=== PATIENT | male | born 1995 | race Caucasian/White ===

== ENCOUNTER 2017-07-11 09:42 | Emergency (ER) | payer OTHER ==
[~2017-07-11] VITALS: Ht 162.6 cm; Wt 70.8 kg
[~2017-07-11 09:42] MED LIST: AMOX500 PO; Bactrim Ds Tab1 EACH PO; CODACE30 PO; HYDACE5 PO; IBUP400 PO; Mupirocin22 GM TOP; RXAMOX500 PO; RXCODACET PO
[2017-07-11] MEDS ORDERED: IBUP600 PO (10:56)
== END 2017-07-11 11:15 | disposition home or self-care (01) ==
LOC: ER 09:42
DX: S62.330A Displaced fracture of neck of second metacarpal bone, right hand, initial encounter for closed fracture (principal); S60.222A Contusion of left hand, initial encounter; Z23 Encounter for immunization; Z87.891 Personal history of nicotine dependence; V00.131A Fall from skateboard, initial encounter
CPT/HCPCS: 29125; 73130; 90471; 90714; 99283

== ENCOUNTER → 2019-12-31 | Outpatient (CLI) | payer OTHER ==
[~2019-12-31] MED LIST changes: +IBUP600 PO
== END | disposition home or self-care (01) ==
LOC: LAB SHORT 13:00 → LAB 13:00
DX: L03.113 Cellulitis of right upper limb (principal)
CPT/HCPCS: 87070; 87075; 87147; 87205